=== PATIENT | male | born 1930 | race Caucasian/White ===

== ENCOUNTER → 2017-06-10 | Outpatient (CLI) | payer MEDICARE, OTHER ==
[~2017-06-10] MED LIST: ASPIRIN EC81 M1 PO; ASPIRIN-DIPYRI1 EACH PO; HYDROCODONE-AP1 EAC6 PO; IMDUR 30 MG TAB30 M1 PO; IMDUR 60 MG TAB60 M1 PO; LABETALOL 100100 MG PO; LEVOTHYROXINE0.05 MG PO; PLAVIX 75 MG TA75 M1 PO; PRILOSEC40 MG PO; RAMIPRIL 10 MG PO; SYNTHROID25 MCG PO; ZOCOR40 MG PO
[2017-06-10 15:21] LABS: ABSOLUTE EOSINOPHILS 0.1 thou/uL (0.0-0.7); ABSOLUTE LYMPHOCYTES 2.2 thou/uL (0.8-5.3); ABSOLUTE MONOCYTES 0.5 thou/uL (0.0-1.2); ABSOLUTE NEUTROPHILS 3.8 thou/uL (1.6-8.1); BASOPHILS 0.3 %; EOSINOPHILS 0.8 %; HEMATOCRIT 39.6 % (42.0-52.0); HEMOGLOBIN 13.3 gm/dL (14.0-18.0); LYMPHOCYTES 33.6 %; MCH 29.8 pg (26.0-34.0); MCHC 33.7 g/dL (28.0-37.0); MCV 88.4 fL (80.0-100.0); MONOCYTES 7.6 %; MPV 9.6 fl. (7.2-11.1); NUCLEATED RBCS 0 /100WBC; PLATELET COUNT* 150 thou/uL (150-400); POLYS 57.7 %; RBC 4.48 mil/uL (4.50-6.00); RDW-CV 13.6 % (10.5-14.5); WBC 6.5 thou/uL (4.0-11.0)
[2017-06-10 15:37] LABS: ALBUMIN 3.9 g/dL (3.4-5.0); CALCIUM 8.6 mg/dL (8.5-10.1); CREATININE 1.4 mg/dL (0.6-1.3); DIRECT BILIRUBIN 0.2 mg/dL (<0.1-0.3); POTASSIUM 4.1 mmol/L (3.5-5.1); TOTAL BILIRUBIN 0.4 mg/dL (<0.1-1.0); TOTAL PROTEIN 6.7 g/dL (6.4-8.2)
== END ==
LOC: M.CT 14:54
PROVIDERS: Internal Medicine
DX: K76.89 Other specified diseases of liver (principal); I70.0 Atherosclerosis of aorta; M47.896 Other spondylosis, lumbar region; I65.29 Occlusion and stenosis of unspecified carotid artery; I10 Essential (primary) hypertension; Z90.49 Acquired absence of other specified parts of digestive tract

== ENCOUNTER → 2017-06-12 | Outpatient (CLI) | payer MEDICARE, OTHER ==
[2017-06-12 13:10] LABS: CREATININE 1.3 mg/dL (0.6-1.3)
== END ==
LOC: M.CT 07:30 → M.LAB 10:30 → M.CT 11:30 → M.LAB 12:30
PROVIDERS: Internal Medicine
DX: I71.4 Abdominal aortic aneurysm, without rupture (principal); I70.0 Atherosclerosis of aorta; R16.0 Hepatomegaly, not elsewhere classified; Z95.820 Peripheral vascular angioplasty status with implants and grafts

== ENCOUNTER → 2017-07-11 | Outpatient (CLI) | payer MEDICARE, OTHER | LOC: M.ULTRA 06:51 | DX: R10.11 Right upper quadrant pain (principal); G89.29 Other chronic pain ==

== ENCOUNTER → 2017-07-29 | Outpatient (CLI) | payer MEDICARE, OTHER | LOC: M.NUC 07:08 | DX: R10.11 Right upper quadrant pain (principal); R14.0 Abdominal distension (gaseous) ==

== ENCOUNTER → 2018-12-08 | Outpatient (CLI) | payer MEDICARE, OTHER ==
--- NOTE | 2018-12-09 08:37 | PF ---
[address] [address] PULMONARY FUNCTION REPORT Name: ISSAC MONTELONGO Room: [facility]#: [id number] Admission: 12/08/18 Attend Phys: Issac Velasquez MD Discharge: Date of : 32 Report #: [id number] THIS REPORT FOR: //name// CC: Issac Velasquez MD DATE OF SERVICE: 12/08/2018 PUMONARY FUNCTION STUDIES LOCATION: [facility]. ATTENDING PHYSICIAN: Dr. Issac Velasquez. INDICATION: The patient is an 88-year-old male with cough, wheezing and shortness of breath. PFTs were indicated. Full pulmonary function studies were performed. Spirometry demonstrates moderate obstructive defect. The patient had mild improvement after single dose of inhaled bronchodilator with 12% improvement. Best study shows an FEV1 of 1.3, FVC of 2.6, ratio is 50%. FEV1 is 41% of predicted. Mid flow rates were diminished to 18% to 60% of predicted. Lung volumes performed via plethysmography showed a total lung capacity, slightly low at 72% and vital capacity, slightly low at 66%. Residual volume is normal at 87. Diffusion corrected for alveolar volume was within normal limits. IMPRESSION: Abnormalities suggest moderate obstructive airways disease with mild improvement after single dose of inhaled bronchodilator. Lung volumes and diffusion were normal. <ELECTRONICALLY SIGNED> By: Tab Ty MD 12/09/18 0837 [id number] kenneth Robertson
== END ==
LOC: M.PUL 10:30
DX: J44.9 Chronic obstructive pulmonary disease, unspecified (principal)

== ENCOUNTER 2021-03-19 13:07 | Emergency (ER) | payer MEDICARE ==
[~2021-03-19] VITALS: Ht 182.9 cm; Wt 90.7 kg
[~2021-03-19 13:07] MED LIST changes: -RAMIPRIL 10 MG PO; +RAMIPRIL2.5 MG PO
[2021-03-19] MEDS ORDERED: NORVASC5 MG PO (13:13)
[2021-03-19] MEDS ORDERED: ROSUVASTATIN CA20 MG PO (13:14)
[2021-03-19] MEDS ORDERED: FUROSEMIDE 40 M40 MG PO (13:15)
[2021-03-19] MEDS ORDERED: NITROSTAT0.4 M1 SUBLING (13:15)
[2021-03-19] MEDS ORDERED: POTASSIUM CHLO20 ME2 PO (13:15)
[2021-03-19] MEDS ORDERED: FLOMAX0.4 MG PO (13:16)
[2021-03-19] MEDS ORDERED: GAS RELIEF180 M1 PO (13:16)
[2021-03-19] MEDS ORDERED: THERAGRAN-M PR1 EAC1 PO (13:16)
[2021-03-19 14:28] LABS: ABSOLUTE EOSINOPHILS 0.1 thou/uL (0.0-0.7); ABSOLUTE MONOCYTES 0.5 thou/uL (0.0-1.2); ABSOLUTE NEUTROPHILS 3.3 thou/uL (1.6-8.1); BASOPHILS 0.4 %; EOSINOPHILS 1.1 %; HEMATOCRIT 43.9 % (42.0-52.0); HEMOGLOBIN 15.1 gm/dL (14.0-18.0); LYMPHOCYTES 34.3 %; MCH 32.7 pg (26.0-34.0); MCHC 34.5 g/dL (28.0-37.0); MONOCYTES 8.4 %; MPV 8.5 fl. (7.2-11.1); NUCLEATED RBCS 0 /100WBC; PLATELET COUNT* 142 thou/uL (150-400); POLYS 55.8 %; RBC 4.63 mil/uL (4.50-6.00); WBC 5.9 thou/uL (4.0-11.0)
[2021-03-19 14:37] LABS: URINE BILIRUBIN NEGATIVE (Negative); URINE BLOOD NEGATIVE (Negative); URINE CLARITY CLEAR; URINE COLOR YELLOW; URINE GLUCOSE-RANDOM NEGATIVE (Negative); URINE KETONES NEGATIVE (Negative); URINE LEUKOCYTES-REFLEX NEGATIVE (Negative); URINE NITRITE-REFLEX NEGATIVE (Negative); URINE PROTEIN NEGATIVE (Negative); URINE UROBILINOGEN 0.2 E.U./dl (0.2-1.0)
[2021-03-19 14:39] LABS: CALCIUM 9.3 mg/dL (8.5-10.1); CREATININE 1.5 mg/dL (0.6-1.3); POTASSIUM 4.2 mmol/L (3.5-5.1)
[2021-03-19 14:43] LABS: TOTAL BILIRUBIN 0.8 mg/dL (<0.1-1.0); TOTAL PROTEIN 7.7 g/dL (6.4-8.2)
--- NOTE | 2021-03-19 15:09 | EKG ---
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: [facility] : 1930 Requested By: Chang Calixto Order Number: [id number] MD: Issac Vance Measurements Intervals [place] Rate: 89 P: 30 MS: 218 QRS: 84 QRSD: 90 T: -75 QT: 380 QTc: 463 Interpretive Statements Sinus rhythm Borderline prolonged MS interval Borderline right axis deviation Low voltage, extremity leads Abnormal R-wave progression, late transition Baseline wander in lead(s) V1 Compared to ECG 06/17/2016 14:13:45 Low QRS voltage now present Electronically Signed On 03-19-2021 15:09:40 THREAD SPOOLER by Issac Vance [email or web address] <ELECTRONICALLY SIGNED> By: Issac Vance MD, FACC 03/19/21 1509 1420 1420 Issac Vance MD, FAC /EPI
[2021-03-19 16:06] VITALS: BP 133/76
== END 2021-03-19 16:06 | disposition home or self-care (01) ==
LOC: M.ERS 13:07
PROVIDERS: Family Medicine; Nurse Practitioner Family
DX: R10.31 Right lower quadrant pain (principal); Z90.49 Acquired absence of other specified parts of digestive tract; Z79.899 Other long term (current) drug therapy; Z88.8 Allergy status to other drugs, medicaments and biological substances